=== PATIENT | female | born 1960 | race Caucasian/White ===

== ENCOUNTER 2017-12-09 14:00 | Inpatient (IN) | payer BC ==
[~2017-12-09] VITALS: Ht 165.1 cm; Wt 66.4 kg
--- NOTE | ~2017-12-09 | EC ---
PATIENT:CHAIM TANNER DATE OF SERVICE: 12/09/17 SEX: F MEDICAL RECORD: [id number] DATE OF : 60 LOCATION:[facility] D230 AGE OF PATIENT: 57 ADMISSION DATE: 12/09/17 REFERRING PHYSICIAN: INTERPRETING PHYSICIAN: EDA WARD MD ECHOCARDIOGRAM REPORT ECHO CHARGES 4 ECHO COMPLETE Date: 12/10 CLINICAL DIAGNOSIS: CHF ECHOCARDIOGRAPHIC MEASUREMENTS (adult normal given) AC root (d.<3.7cm) 3.0 cm LV Septum d (<1.2 cm> 1.0 cm Valve Excursion 1.2 cm LV Septum (systole) 1.2 cm Left Atria (s.<4.0cm> 3.1 cm LVPW d(<1.2cm) 1.5 cm RV (d.<2.3cm) 3.8 cm LVPW (sytole) 1.6 cm LV diastole(<5.6CM) 4.0 cm MV E-F(>70mm/sec) cm LV systole 2.7 cm LVOT Diameter 1.9 cm MV exc.(>10mm) 1.8 cm Est.ejection fraction (50-75%) % DOPPLER: LVIT cm/sec A 86.0 cm/sec E 118 cm/sec LA cm/sec RVSP 36 mmHg LVOT 137 cm/sec AOP1/2T m/s Asc. Ao 187 cm/sec RVOT 107 cm/sec RA cm/sec PA 124 cm/sec AV Gradient Peak 1.40 mmHg AV Mean 7.13 mmHg AV Area 1.9 cm MV Gradient Peak 6.45 mmHg MV Mean 2.19 mmHg MV Area cm COMMENTS: Ground Defence Officer: 2 DARIUS ZENDEJAS Psychometric Examiner: 4 Dr. Ward TAPE# PACS Pericardial Effusion N DATE OF SERVICE: PROCEDURE: Transthoracic echocardiogram. FINDINGS: 1. The left ventricle is difficult to visualize, but grossly normal structure and function. Inflow characteristics are normal. No evidence of significant abnormalities or regional wall motion changes. 2. The left atrium is normal. 3. Aortic valve is normal. ECHOCARDIOGRAM REPORT [id number] CHAIM TANNER 4. The mitral valve is normal. 5. The tricuspid valve has trace tricuspid regurgitation. RVSP of 30-35 mmHg. 6. The right ventricle is mildly dilated. 7. The right atrium is mildly dilated. 8. Pulmonic valve is normal. CONCLUSION: The patient has a normal echocardiogram for stated age. TRANSINT:[id number] Voice Confirmation ID: [id number] DOCUMENT ID: [id number] EDA WARD MD at 0927 CC: [id number] DICTATION DATE: 12/11/17 1044 [employer] FI[employer] SPECIALIST: 12/11/17 1104 ADM IN [id number] [place] [id number]
[2017-12-09] MEDS ORDERED: LIPITOR20 MG PO (18:10)
[2017-12-09] MEDS ORDERED: PRINIVIL20 MG PO (18:20)
[2017-12-09] MEDS ORDERED: PROZAC40 MG PO (18:24)
[2017-12-09] MEDS ORDERED: GLUCOPHAGE500 MG PO (18:25)
[2017-12-09] MEDS ORDERED: GLUCOTROL 5 MG T5 MG PO (18:25)
[2017-12-09] MEDS ORDERED: ABILIFY10 MG PO (18:26)
[2017-12-09 18:45] VITALS: BP 98/56
[2017-12-09 19:00] VITALS: BP 102/56; BP 109/65
[2017-12-09 19:28] LABS: BASOPHILS 0.1 % (0-2); EOSINOPHILS 0.6 % (0-7); HEMATOCRIT 25.7 % (36.0-48.0); HEMOGLOBIN 8.6 g/dL (12-16); IMMATURE GRANULOCYTES 0.5 % (0-5); LYMPHOCYTES 12.8 % (15-50); MCH 30.6 pg (26.0-34.0); MCHC 33.5 g/dL (31.0-37.0); MCV 91.5 fL (80.0-100.0); MEAN PLATELET VOLUME 9.6 fL (7.4-10.4); MONOCYTES 4.5 % (2-11); NEUTROPHILS 81.5 % (40-80); PLATELET COUNT 182 10x3/uL (130-400); RBC 2.81 10x6/uL (4.00-5.40); RDW 13.4 % (11.5-14.5); WBC 12.1 10x3/uL (4.8-10.8)
[2017-12-09 19:36] LABS: ALBUMIN 1.9 g/dL (3.4-5.0); BILIRUBIN - TOTAL 0.48 mg/dL (0.2-1.3); CALCIUM 8.2 mg/dL (8.5-10.1); CARBON DIOXIDE 24.8 mmol/L (21.0-32.0); CREATININE - SERUM 1.1 mg/dL (0.6-1.3); MAGNESIUM - SERUM 1.8 mg/dL (1.8-2.4); PHOSPHOROUS 2.4 mg/dL (2.5-4.9); POTASSIUM - SERUM 3.8 mmol/L (3.5-5.1); PROTEIN - SERUM 5.7 g/dL (6.4-8.2)
[2017-12-09 20:00] VITALS: BP 112/64
[2017-12-09 20:08] LABS: FERRITIN 386 ng/mL (3-244)
[2017-12-09 20:09] LABS: LDH 783 U/L (81-234)
[2017-12-09 20:12] LABS: CKMB 1.1 U/L (0.0-3.6); CREATINE KINASE 145 UL (21-215)
[2017-12-09 20:19] LABS: TROPONIN-I < 0.017 ng/mL (0.000-0.060)
[2017-12-09 20:32] VITALS: BMI 28.5
[2017-12-09 21:00] VITALS: BP 119/64
[2017-12-09 22:00] VITALS: BP 118/63
[2017-12-09 23:00] VITALS: BP 106/57
[2017-12-10] VITALS (24 sets, daily range): BP systolic 96–123; BP diastolic 51–69; Ht 165.1 cm; Wt 66.4 kg
[2017-12-10 04:09] LABS: BASOPHILS 0 % (0-2); EOSINOPHILS 0.1 % (0-7); HEMATOCRIT 26.2 % (36.0-48.0); HEMOGLOBIN 8.8 g/dL (12-16); IMMATURE GRANULOCYTES 0.3 % (0-5); LYMPHOCYTES 7.1 % (15-50); MCH 30.7 pg (26.0-34.0); MCHC 33.6 g/dL (31.0-37.0); MCV 91.3 fL (80.0-100.0); MEAN PLATELET VOLUME 9.6 fL (7.4-10.4); MONOCYTES 2.9 % (2-11); NEUTROPHILS 89.6 % (40-80); PLATELET COUNT 193 10x3/uL (130-400); RBC 2.87 10x6/uL (4.00-5.40); RDW 13.5 % (11.5-14.5); WBC 11.6 10x3/uL (4.8-10.8)
[2017-12-10 04:33] LABS: ALBUMIN 1.9 g/dL (3.4-5.0); ALKALINE PHOSPHATASE 96 U/L (46-116); ALT (SGPT) 22 U/L (10-68); BILIRUBIN - TOTAL 0.68 mg/dL (0.2-1.3); CALCIUM 8.8 mg/dL (8.5-10.1); CARBON DIOXIDE 25.2 mmol/L (21.0-32.0); CHLORIDE - SERUM 103 mmol/L (98-107); CKMB 1.3 U/L (0.0-3.6); CREATINE KINASE 110 UL (21-215); CREATININE - SERUM 1.1 mg/dL (0.6-1.3); POTASSIUM - SERUM 3.9 mmol/L (3.5-5.1); PROTEIN - SERUM 6.1 g/dL (6.4-8.2); SODIUM 138 mmol/L (136-145); UREA NITROGEN 16 mg/dL (7-18); eGFR NON AFRICAN AMERICAN 54 mL/min (90-120)
[2017-12-10 04:37] LABS: CALC OSMOLALITY 282 mosm/kg (275-300); GLUCOSE 205 mg/dL (74-106); TROPONIN-I < 0.017 ng/mL (0.000-0.060)
[2017-12-11] VITALS (23 sets, daily range): BP systolic 95–113; BP diastolic 53–66
[2017-12-11 04:30] LABS: BASOPHILS 0 % (0-2); EOSINOPHILS 0 % (0-7); HEMATOCRIT 25.4 % (36.0-48.0); HEMOGLOBIN 8.4 g/dL (12-16); IMMATURE GRANULOCYTES 0.5 % (0-5); LYMPHOCYTES 7.4 % (15-50); MCH 30.2 pg (26.0-34.0); MCHC 33.1 g/dL (31.0-37.0); MCV 91.4 fL (80.0-100.0); MEAN PLATELET VOLUME 9.8 fL (7.4-10.4); MONOCYTES 4.9 % (2-11); NEUTROPHILS 87.2 % (40-80); PLATELET COUNT 211 10x3/uL (130-400); RBC 2.78 10x6/uL (4.00-5.40); RDW 13.4 % (11.5-14.5); WBC 10.9 10x3/uL (4.8-10.8)
[2017-12-11 04:48] LABS: ALBUMIN 1.8 g/dL (3.4-5.0); ANION GAP 13.3 mmol/L (8-16); BILIRUBIN - TOTAL 0.47 mg/dL (0.2-1.3); CALCIUM 8.9 mg/dL (8.5-10.1); CARBON DIOXIDE 25.2 mmol/L (21.0-32.0); CREATININE - SERUM 1.1 mg/dL (0.6-1.3); POTASSIUM - SERUM 3.5 mmol/L (3.5-5.1); PROTEIN - SERUM 6.2 g/dL (6.4-8.2)
[2017-12-11 04:57] LABS: MAGNESIUM - SERUM 2.6 mg/dL (1.8-2.4); PHOSPHOROUS 4.7 mg/dL (2.5-4.9)
[2017-12-12] VITALS (23 sets, daily range): BP systolic 105–137; BP diastolic 54–73
[2017-12-12 03:50] LABS: BASOPHILS 0 % (0-2); EOSINOPHILS 0.2 % (0-7); HEMATOCRIT 26.6 % (36.0-48.0); HEMOGLOBIN 8.5 g/dL (12-16); IMMATURE GRANULOCYTES 0.9 % (0-5); LYMPHOCYTES 7.6 % (15-50); MCH 29.8 pg (26.0-34.0); MCV 93.3 fL (80.0-100.0); MEAN PLATELET VOLUME 9.5 fL (7.4-10.4); MONOCYTES 4.3 % (2-11); RBC 2.85 10x6/uL (4.00-5.40); RDW 13.6 % (11.5-14.5); WBC 10.9 10x3/uL (4.8-10.8)
[2017-12-12 03:54] LABS: PLATELET COUNT 271 10x3/uL (130-400)
[2017-12-12 04:10] LABS: ALBUMIN 1.7 g/dL (3.4-5.0); BILIRUBIN - TOTAL 0.4 mg/dL (0.2-1.3); CARBON DIOXIDE 26.8 mmol/L (21.0-32.0); CREATININE - SERUM 1.3 mg/dL (0.6-1.3); MAGNESIUM - SERUM 2.4 mg/dL (1.8-2.4); PHOSPHOROUS 4.6 mg/dL (2.5-4.9); PROTEIN - SERUM 5.9 g/dL (6.4-8.2)
[2017-12-12 04:13] LABS: ANION GAP 11.5 mmol/L (8-16); POTASSIUM - SERUM 4.3 mmol/L (3.5-5.1)
[2017-12-13] VITALS (24 sets, daily range): BP systolic 120–165; BP diastolic 61–82
[2017-12-13 04:31] LABS: BASOPHILS 0.1 % (0-2); EOSINOPHILS 0.1 % (0-7); HEMATOCRIT 27.9 % (36.0-48.0); HEMOGLOBIN 8.9 g/dL (12-16); LYMPHOCYTES 13.8 % (15-50); MCHC 31.9 g/dL (31.0-37.0); MCV 93.9 fL (80.0-100.0); MEAN PLATELET VOLUME 9.5 fL (7.4-10.4); PLATELET COUNT 301 10x3/uL (130-400); RBC 2.97 10x6/uL (4.00-5.40); RDW 13.5 % (11.5-14.5); WBC 8.9 10x3/uL (4.8-10.8)
[2017-12-13 05:01] LABS: ALBUMIN 1.8 g/dL (3.4-5.0); BILIRUBIN - TOTAL 0.42 mg/dL (0.2-1.3); CALCIUM 8.1 mg/dL (8.5-10.1); CARBON DIOXIDE 24.6 mmol/L (21.0-32.0); CREATININE - SERUM 1.3 mg/dL (0.6-1.3); POTASSIUM - SERUM 4.6 mmol/L (3.5-5.1)
[2017-12-13 17:14] LABS: AFB SPECIMEN PROCESSING Concentration (())
[2017-12-14] VITALS (24 sets, daily range): BP systolic 88–172; BP diastolic 37–79
[2017-12-14 04:31] LABS: BASOPHILS 0.1 % (0-2); EOSINOPHILS 0.1 % (0-7); HEMATOCRIT 29.1 % (36.0-48.0); HEMOGLOBIN 9.4 g/dL (12-16); IMMATURE GRANULOCYTES 4.2 % (0-5); LYMPHOCYTES 12.3 % (15-50); MCH 30.2 pg (26.0-34.0); MCHC 32.3 g/dL (31.0-37.0); MCV 93.6 fL (80.0-100.0); MEAN PLATELET VOLUME 9.3 fL (7.4-10.4); MONOCYTES 9.6 % (2-11); NEUTROPHILS 73.7 % (40-80); PLATELET COUNT 330 10x3/uL (130-400); RBC 3.11 10x6/uL (4.00-5.40); RDW 13.4 % (11.5-14.5); WBC 9.7 10x3/uL (4.8-10.8)
[2017-12-14 05:49] LABS: ANION GAP 14.8 mmol/L (8-16); BILIRUBIN - TOTAL 0.43 mg/dL (0.2-1.3); CARBON DIOXIDE 23.6 mmol/L (21.0-32.0); CREATININE - SERUM 1.3 mg/dL (0.6-1.3); MAGNESIUM - SERUM 2.3 mg/dL (1.8-2.4); PHOSPHOROUS 3.4 mg/dL (2.5-4.9); POTASSIUM - SERUM 4.4 mmol/L (3.5-5.1); PROTEIN - SERUM 6.1 g/dL (6.4-8.2)
[2017-12-14 13:19] LABS: FUNGUS STAIN Final report (())
[2017-12-15] VITALS (23 sets, daily range): BP systolic 108–169; BP diastolic 53–75
[2017-12-15 05:15] LABS: ANION GAP 15.8 mmol/L (8-16); CARBON DIOXIDE 24.4 mmol/L (21.0-32.0); CREATININE - SERUM 1.2 mg/dL (0.6-1.3); MAGNESIUM - SERUM 2.2 mg/dL (1.8-2.4); PHOSPHOROUS 3.8 mg/dL (2.5-4.9); POTASSIUM - SERUM 4.2 mmol/L (3.5-5.1)
[2017-12-15 06:45] LABS: BASOPHILS 0 % (0-2); EOSINOPHILS 0.1 % (0-7); HEMATOCRIT 29.1 % (36.0-48.0); HEMOGLOBIN 9.2 g/dL (12-16); IMMATURE GRANULOCYTES 3.5 % (0-5); LYMPHOCYTES 11.3 % (15-50); MCHC 31.6 g/dL (31.0-37.0); MCV 94.8 fL (80.0-100.0); MEAN PLATELET VOLUME 9.3 fL (7.4-10.4); MONOCYTES 6.9 % (2-11); NEUTROPHILS 78.2 % (40-80); PLATELET COUNT 331 10x3/uL (130-400); RBC 3.07 10x6/uL (4.00-5.40); RDW 13.5 % (11.5-14.5); WBC 9.1 10x3/uL (4.8-10.8)
[2017-12-15 18:09] LABS: FOLATE (FOLIC ACID) - SERUM QNS ng/mL (())
[2017-12-16] VITALS (20 sets, daily range): BP systolic 108–146; BP diastolic 54–89
[2017-12-16 05:10] LABS: BASOPHILS 0.1 % (0-2); EOSINOPHILS 0.9 % (0-7); HEMATOCRIT 28.8 % (36.0-48.0); HEMOGLOBIN 9.3 g/dL (12-16); IMMATURE GRANULOCYTES 1.7 % (0-5); LYMPHOCYTES 15.7 % (15-50); MCH 30.3 pg (26.0-34.0); MCHC 32.3 g/dL (31.0-37.0); MCV 93.8 fL (80.0-100.0); MEAN PLATELET VOLUME 8.8 fL (7.4-10.4); MONOCYTES 8.4 % (2-11); NEUTROPHILS 73.2 % (40-80); PLATELET COUNT 284 10x3/uL (130-400); RBC 3.07 10x6/uL (4.00-5.40); RDW 13.5 % (11.5-14.5); WBC 10.1 10x3/uL (4.8-10.8)
[2017-12-16 05:25] LABS: CALCIUM 7.9 mg/dL (8.5-10.1); CARBON DIOXIDE 25.3 mmol/L (21.0-32.0); PHOSPHOROUS 3.5 mg/dL (2.5-4.9); VANCOMYCIN - TROUGH 15.1 ug/mL (10.0-20.0)
[2017-12-16 05:32] LABS: POTASSIUM - SERUM 3.3 mmol/L (3.5-5.1)
[2017-12-17] VITALS (24 sets, daily range): BP systolic 102–155; BP diastolic 51–75
[2017-12-17 04:27] LABS: BASOPHILS 0 % (0-2); EOSINOPHILS 2.2 % (0-7); HEMATOCRIT 27.3 % (36.0-48.0); HEMOGLOBIN 8.7 g/dL (12-16); LYMPHOCYTES 14.3 % (15-50); MCH 29.9 pg (26.0-34.0); MCHC 31.9 g/dL (31.0-37.0); MCV 93.8 fL (80.0-100.0); MEAN PLATELET VOLUME 9.2 fL (7.4-10.4); MONOCYTES 8.6 % (2-11); NEUTROPHILS 73.9 % (40-80); PLATELET COUNT 285 10x3/uL (130-400); RBC 2.91 10x6/uL (4.00-5.40); RDW 13.5 % (11.5-14.5); WBC 9.9 10x3/uL (4.8-10.8)
[2017-12-17 05:03] LABS: ANION GAP 15.9 mmol/L (8-16); CALCIUM 7.8 mg/dL (8.5-10.1); CARBON DIOXIDE 24.3 mmol/L (21.0-32.0); MAGNESIUM - SERUM 2.1 mg/dL (1.8-2.4); POTASSIUM - SERUM 3.2 mmol/L (3.5-5.1)
[2017-12-17 08:15] LABS: FOLATE (FOLIC ACID) - SERUM 7.5 ng/mL (>3.0)
[2017-12-18] VITALS (24 sets, daily range): BP systolic 110–142; BP diastolic 55–72
[2017-12-18 03:59] LABS: BASOPHILS 0 % (0-2); EOSINOPHILS 2.1 % (0-7); HEMATOCRIT 27.7 % (36.0-48.0); HEMOGLOBIN 8.9 g/dL (12-16); LYMPHOCYTES 9.7 % (15-50); MCH 30.4 pg (26.0-34.0); MCHC 32.1 g/dL (31.0-37.0); MCV 94.5 fL (80.0-100.0); MEAN PLATELET VOLUME 9.3 fL (7.4-10.4); MONOCYTES 7.8 % (2-11); NEUTROPHILS 79.4 % (40-80); PLATELET COUNT 290 10x3/uL (130-400); RBC 2.93 10x6/uL (4.00-5.40); RDW 13.6 % (11.5-14.5); WBC 11.4 10x3/uL (4.8-10.8)
[2017-12-18 04:12] LABS: CALCIUM 7.9 mg/dL (8.5-10.1); CARBON DIOXIDE 24.6 mmol/L (21.0-32.0); CREATININE - SERUM 1.1 mg/dL (0.6-1.3); MAGNESIUM - SERUM 2.6 mg/dL (1.8-2.4); PHOSPHOROUS 2.4 mg/dL (2.5-4.9); POTASSIUM - SERUM 3.6 mmol/L (3.5-5.1)
[2017-12-19] VITALS (24 sets, daily range): BP systolic 114–165; BP diastolic 60–86
[2017-12-19 04:03] LABS: BASOPHILS 0.1 % (0-2); EOSINOPHILS 1.2 % (0-7); HEMATOCRIT 27.1 % (36.0-48.0); HEMOGLOBIN 8.6 g/dL (12-16); IMMATURE GRANULOCYTES 0.5 % (0-5); LYMPHOCYTES 12.8 % (15-50); MCHC 31.7 g/dL (31.0-37.0); MCV 94.4 fL (80.0-100.0); MEAN PLATELET VOLUME 9.4 fL (7.4-10.4); MONOCYTES 6.3 % (2-11); NEUTROPHILS 79.1 % (40-80); PLATELET COUNT 285 10x3/uL (130-400); RBC 2.87 10x6/uL (4.00-5.40); WBC 13.6 10x3/uL (4.8-10.8)
[2017-12-19 04:15] LABS: ANION GAP 13.6 mmol/L (8-16); CALCIUM 7.8 mg/dL (8.5-10.1); CARBON DIOXIDE 25.4 mmol/L (21.0-32.0)
[2017-12-20] VITALS (24 sets, daily range): BP systolic 125–157; BP diastolic 60–84
[2017-12-20 04:54] LABS: BASOPHILS 0.1 % (0-2); EOSINOPHILS 0.8 % (0-7); HEMATOCRIT 28.3 % (36.0-48.0); HEMOGLOBIN 9.1 g/dL (12-16); IMMATURE GRANULOCYTES 1.1 % (0-5); LYMPHOCYTES 13.3 % (15-50); MCH 30.3 pg (26.0-34.0); MCHC 32.2 g/dL (31.0-37.0); MCV 94.3 fL (80.0-100.0); MEAN PLATELET VOLUME 9.9 fL (7.4-10.4); MONOCYTES 7.4 % (2-11); NEUTROPHILS 77.3 % (40-80); RDW 14.1 % (11.5-14.5); WBC 12.4 10x3/uL (4.8-10.8)
[2017-12-20 05:12] LABS: PLATELET COUNT 345 10x3/uL (130-400)
[2017-12-20 05:58] LABS: ALBUMIN 2.2 g/dL (3.4-5.0); ANION GAP 13.7 mmol/L (8-16); BILIRUBIN - TOTAL 0.18 mg/dL (0.2-1.3); CALCIUM 8.4 mg/dL (8.5-10.1); CARBON DIOXIDE 24.8 mmol/L (21.0-32.0); POTASSIUM - SERUM 3.5 mmol/L (3.5-5.1); PROTEIN - SERUM 6.1 g/dL (6.4-8.2)
[2017-12-20 09:15] LABS: FUNGUS CULTURE RESULT 1 Candida albicans (())
[2017-12-21] VITALS (20 sets, daily range): BP systolic 104–139; BP diastolic 50–74
[2017-12-21 03:49] LABS: BASOPHILS 0 % (0-2); HEMATOCRIT 26.4 % (36.0-48.0); HEMOGLOBIN 8.3 g/dL (12-16); IMMATURE GRANULOCYTES 0.8 % (0-5); LYMPHOCYTES 17.8 % (15-50); MCHC 31.4 g/dL (31.0-37.0); MCV 95.3 fL (80.0-100.0); MEAN PLATELET VOLUME 9.5 fL (7.4-10.4); MONOCYTES 8.7 % (2-11); NEUTROPHILS 70.7 % (40-80); PLATELET COUNT 315 10x3/uL (130-400); RBC 2.77 10x6/uL (4.00-5.40); RDW 14.2 % (11.5-14.5); WBC 9.5 10x3/uL (4.8-10.8)
[2017-12-21 04:09] LABS: ALBUMIN 2.1 g/dL (3.4-5.0); ANION GAP 12.5 mmol/L (8-16); BILIRUBIN - TOTAL 0.35 mg/dL (0.2-1.3); CALCIUM 8.3 mg/dL (8.5-10.1); CARBON DIOXIDE 26.5 mmol/L (21.0-32.0); CREATININE - SERUM 0.9 mg/dL (0.6-1.3); PROTEIN - SERUM 5.7 g/dL (6.4-8.2)
[2017-12-22] VITALS (15 sets, daily range): BP systolic 114–140; BP diastolic 50–88
[2017-12-22 05:19] LABS: BASOPHILS 0.1 % (0-2); EOSINOPHILS 1.1 % (0-7); HEMATOCRIT 26.8 % (36.0-48.0); HEMOGLOBIN 8.4 g/dL (12-16); IMMATURE GRANULOCYTES 0.8 % (0-5); LYMPHOCYTES 20.5 % (15-50); MCH 29.7 pg (26.0-34.0); MCHC 31.3 g/dL (31.0-37.0); MCV 94.7 fL (80.0-100.0); MEAN PLATELET VOLUME 9.4 fL (7.4-10.4); MONOCYTES 8.7 % (2-11); NEUTROPHILS 68.8 % (40-80); PLATELET COUNT 343 10x3/uL (130-400); RBC 2.83 10x6/uL (4.00-5.40); RDW 14.2 % (11.5-14.5); WBC 7.9 10x3/uL (4.8-10.8)
[2017-12-22 05:27] LABS: ALBUMIN 2.3 g/dL (3.4-5.0); ALKALINE PHOSPHATASE 98 U/L (46-116); ALT (SGPT) 34 U/L (10-68); BILIRUBIN - TOTAL 0.27 mg/dL (0.2-1.3); CALC OSMOLALITY 291 mosm/kg (275-300); CALCIUM 8.4 mg/dL (8.5-10.1); CARBON DIOXIDE 25.8 mmol/L (21.0-32.0); CHLORIDE - SERUM 109 mmol/L (98-107); CREATININE - SERUM 0.8 mg/dL (0.6-1.3); GLUCOSE 178 mg/dL (74-106); PROTEIN - SERUM 6.1 g/dL (6.4-8.2); SODIUM 144 mmol/L (136-145); UREA NITROGEN 15 mg/dL (7-18); eGFR NON AFRICAN AMERICAN 78 mL/min (90-120)
[2017-12-22 05:46] LABS: POTASSIUM - SERUM 3.1 mmol/L (3.5-5.1)
[2017-12-23 00:31] VITALS: BP 113/43
[2017-12-23 06:50] LABS: BASOPHILS 0 % (0-2); EOSINOPHILS 0.8 % (0-7); HEMATOCRIT 26.5 % (36.0-48.0); HEMOGLOBIN 8.4 g/dL (12-16); IMMATURE GRANULOCYTES 0.6 % (0-5); LYMPHOCYTES 18.9 % (15-50); MCH 29.7 pg (26.0-34.0); MCHC 31.7 g/dL (31.0-37.0); MCV 93.6 fL (80.0-100.0); MEAN PLATELET VOLUME 9.5 fL (7.4-10.4); MONOCYTES 9.1 % (2-11); NEUTROPHILS 70.6 % (40-80); PLATELET COUNT 342 10x3/uL (130-400); RBC 2.83 10x6/uL (4.00-5.40); RDW 14.2 % (11.5-14.5); WBC 7.1 10x3/uL (4.8-10.8)
[2017-12-23 07:14] LABS: ALBUMIN 2.4 g/dL (3.4-5.0); ANION GAP 13.3 mmol/L (8-16); BILIRUBIN - TOTAL 0.32 mg/dL (0.2-1.3); CALCIUM 8.4 mg/dL (8.5-10.1); POTASSIUM - SERUM 3.3 mmol/L (3.5-5.1); PROTEIN - SERUM 6.1 g/dL (6.4-8.2)
[2017-12-23 07:53] VITALS: BP 128/88
[2017-12-23 11:00] VITALS: BP 151/65
[2017-12-23 16:30] VITALS: BP 120/62
[2017-12-23 20:35] VITALS: BP 138/59
[2017-12-24 00:21] VITALS: BP 120/54
[2017-12-24 05:07] VITALS: BP 129/43
[2017-12-24 05:32] LABS: BASOPHILS 0 % (0-2); EOSINOPHILS 0.8 % (0-7); HEMATOCRIT 25.4 % (36.0-48.0); HEMOGLOBIN 8.2 g/dL (12-16); IMMATURE GRANULOCYTES 0.5 % (0-5); LYMPHOCYTES 21.1 % (15-50); MCH 30.3 pg (26.0-34.0); MCHC 32.3 g/dL (31.0-37.0); MCV 93.7 fL (80.0-100.0); MONOCYTES 6.8 % (2-11); NEUTROPHILS 70.8 % (40-80); PLATELET COUNT 350 10x3/uL (130-400); RBC 2.71 10x6/uL (4.00-5.40); RDW 14.2 % (11.5-14.5); WBC 7.8 10x3/uL (4.8-10.8)
[2017-12-24 05:50] LABS: ALBUMIN 2.3 g/dL (3.4-5.0); ALKALINE PHOSPHATASE 92 U/L (46-116); ALT (SGPT) 35 U/L (10-68); CARBON DIOXIDE 24.4 mmol/L (21.0-32.0); CHLORIDE - SERUM 108 mmol/L (98-107); CREATININE - SERUM 0.8 mg/dL (0.6-1.3); GLUCOSE 153 mg/dL (74-106); PROTEIN - SERUM 5.9 g/dL (6.4-8.2); SODIUM 144 mmol/L (136-145); eGFR NON AFRICAN AMERICAN 78 mL/min (90-120)
[2017-12-24 06:04] LABS: CALC OSMOLALITY 287 mosm/kg (275-300); UREA NITROGEN 8 mg/dL (7-18)
[2017-12-24 08:45] VITALS: BP 105/60
[2017-12-24 12:10] VITALS: BP 110/62
[2017-12-24 14:50] LABS: APPEARANCE HAZY (CLEAR); COLOR BROWN (YELLOW); NITRITE NEGATIVE (NEGATIVE)
[2017-12-24 14:51] LABS: BILIRUBIN NEGATIVE (NEGATIVE); GLUCOSE NEGATIVE (NEGATIVE); KETONE SMALL mg/dL (NEGATIVE); PROTEIN TRACE mg/dL (NEGATIVE); UROBILINOGEN NORMAL (NORMAL)
[2017-12-24 14:52] LABS: EPITHELIAL CELLS 0-5 /hpf (0-5); RED CELLS - URINE >50 /hpf (0-5)
[2017-12-24 14:53] LABS: BACTERIA FEW /hpf (NONE SEEN); YEAST <1+ /hpf (NONE SEEN)
[2017-12-24 15:54] VITALS: BP 115/60
[2017-12-24 21:43] VITALS: BP 112/52
[2017-12-25 03:03] VITALS: BP 115/56
[2017-12-25 05:34] LABS: BASOPHILS 0.2 % (0-2); EOSINOPHILS 1.1 % (0-7); HEMATOCRIT 29.7 % (36.0-48.0); HEMOGLOBIN 9.3 g/dL (12-16); IMMATURE GRANULOCYTES 0.2 % (0-5); LYMPHOCYTES 32.3 % (15-50); MCHC 31.3 g/dL (31.0-37.0); MEAN PLATELET VOLUME 9.5 fL (7.4-10.4); MONOCYTES 4.9 % (2-11); NEUTROPHILS 61.3 % (40-80); PLATELET COUNT 338 10x3/uL (130-400); RDW 14.7 % (11.5-14.5)
[2017-12-25 05:36] LABS: MCV 95.8 fL (80.0-100.0)
[2017-12-25 05:50] LABS: ANION GAP 13.6 mmol/L (8-16); CALCIUM 8.9 mg/dL (8.5-10.1); CARBON DIOXIDE 23.2 mmol/L (21.0-32.0)
[2017-12-25 05:59] LABS: POTASSIUM - SERUM 2.8 mmol/L (3.5-5.1)
[2017-12-25 06:01] VITALS: BP 125/69
[2017-12-25 08:13] VITALS: BP 119/59
[2017-12-25 11:53] VITALS: BP 103/47
[2017-12-25 15:37] VITALS: BP 103/46
[2017-12-25 20:30] VITALS: BP 115/61
[2017-12-26 00:30] VITALS: BP 111/55
[2017-12-26 04:30] VITALS: BP 147/68
[2017-12-26 06:04] LABS: ANION GAP 13.7 mmol/L (8-16); CALCIUM 8.2 mg/dL (8.5-10.1); CREATININE - SERUM 0.9 mg/dL (0.6-1.3)
[2017-12-26 06:44] LABS: BASOPHILS 0.2 % (0-2); EOSINOPHILS 1.2 % (0-7); HEMATOCRIT 27.2 % (36.0-48.0); HEMOGLOBIN 8.6 g/dL (12-16); IMMATURE GRANULOCYTES 0.3 % (0-5); LYMPHOCYTES 33.8 % (15-50); MCHC 31.6 g/dL (31.0-37.0); MCV 94.8 fL (80.0-100.0); MEAN PLATELET VOLUME 9.5 fL (7.4-10.4); NEUTROPHILS 57.5 % (40-80); PLATELET COUNT 340 10x3/uL (130-400); RBC 2.87 10x6/uL (4.00-5.40); RDW 14.9 % (11.5-14.5)
[2017-12-26 06:57] LABS: WBC 5.9 10x3/uL (4.8-10.8)
[2017-12-26 07:25] LABS: POTASSIUM - SERUM 2.7 mmol/L (3.5-5.1)
[2017-12-26 09:13] VITALS: BP 105/57
[2017-12-26 12:02] VITALS: BP 120/48
[2017-12-26] MEDS ORDERED: IPRAT-ALBUT 0.5-3 ML IH (14:18)
[2017-12-26] MEDS ORDERED: BROVANA15 MCG/2 M INH (14:18)
[2018-01-08 08:12] LABS: FUNGUS MYCOLOGY CULTURE Final report (())
[2018-02-04 18:08] LABS: ACID FAST CULTURE Negative (()); ACID FAST SMEAR Negative (())
== END 2017-12-26 16:10 | DRG 862 ==
LOC: D.ICU 14:00 → D.M2 12-22 15:26
PROVIDERS: Family Medicine; Internal Medicine Nephrology; Surgery
PROC: 5A1955Z Respiratory Ventilation, Greater than 96 Consecutive Hours (ICD-10-PCS; principal; 2017-12-09)
PROC: 0BH17EZ Insertion of Endotracheal Airway into Trachea, Via Natural or Artificial Opening (ICD-10-PCS; 2017-12-09)
PROC: 0B978ZZ Drainage of Left Main Bronchus, Via Natural or Artificial Opening Endoscopic (ICD-10-PCS; 2017-12-10)
PROC: 0B938ZZ Drainage of Right Main Bronchus, Via Natural or Artificial Opening Endoscopic (ICD-10-PCS; 2017-12-10)
DX: T81.4XXA Infection following a procedure, initial encounter (principal); A41.9 Sepsis, unspecified organism; J96.01 Acute respiratory failure with hypoxia; E43 Unspecified severe protein-calorie malnutrition; J18.9 Pneumonia, unspecified organism; K91.71 Accidental puncture and laceration of a digestive system organ or structure during a digestive system procedure; Z68.1 Body mass index [BMI] 19.9 or less, adult; J44.1 Chronic obstructive pulmonary disease with (acute) exacerbation; D64.9 Anemia, unspecified; F17.200 Nicotine dependence, unspecified, uncomplicated; Y95 Nosocomial condition; E11.9 Type 2 diabetes mellitus without complications; E78.5 Hyperlipidemia, unspecified; I10 Essential (primary) hypertension; F32.9 Major depressive disorder, single episode, unspecified; Y65.8 Other specified misadventures during surgical and medical care; G47.33 Obstructive sleep apnea (adult) (pediatric)